=== PATIENT | female | born 1970 | race Caucasian/White ===

== ENCOUNTER 2016-11-21 13:43 | Emergency (ER) | payer OTHER ==
[~2016-11-21] VITALS: Ht 144.8 cm; Wt 40.8 kg
[2016-11-21] MEDS ORDERED: CLINDAMYCIN HC300 MG PO (14:20)
--- NOTE | 2016-11-21 14:23 | Urgent Treatment Center Report ---
History of Present Issue Date/Time Seen by Provider 11/21/16 1413 Visit Reason Pt arrived:Walked Presenting Problem:PT C/O ABSCESS TOOTH Location if Accident: Onset of symptoms date/time:/ or onset unknown for:MEDICAL HX UNKNOWN Have you (or family members/close friends) recently traveled outside the [place]? N If Yes, where/when: Have you had exposure to infectious disease within the past month? TB? Other? Specify: Source patient Exam Limitations no limitations Comment 46-year-old female presents for abscessed tooth on the lower LEFT hand side of jaw. Patient states she's had numerous abscessed teeth over the last couple months and had just finished penicillin orally 3 days ago for an abscess. She does not live around here she is just visiting. Patient refuses any IM injection ALLERGIES Coded Allergies: No Known Drug Allergies (NKDA) (Mild, 11/21/16) acetaminophen (From PERCOCET) (Mild, 11/21/16) cefaclor (From CECLOR) (Mild, 11/21/16) oxycodone (From PERCOCET) (Mild, 11/21/16) History Medical History General CAD? No Angina: No GA: No Hypertension? No Hyperlipidemia? No CHF? No DVT? No PE? No COPD? No Asthma? No Anemia? No GERD? No Gastric ulcers? No GI Bleed? No Hernia? No Thyroid Problems? No Hypothyroidism? No CVA? No Seizures? No Diabetes? No Renal Insuffiency? No UTI? No Stones? No BPH? No GB Disease: No Nephritic Syndrome? No Asplenia? No Hepatitis? No Sickle Cell Disease? No Arthritis? No Migraines? No Cataracts? No Glaucoma? No MRSA? No HIV? No TB? No Anxiety? No Depression? No Cancer? No More? No Immunization HX DT/Tetanus 1-4 Years Ago Surgical Hx Previous Surgery?N Social History Smoking Hx Smoker: Current Every Day Smoker Tobacco: Yes Type Cigarettes Review of Systems All Other Systems Reviewed and Negative ENT see HPI, dental caries. Physical Exam Vital Signs Vital Signs Date Time Temp Pulse Resp B/P Pulse O2 O2 Flow FiO2 Ox Delivery Rate 11/21 1408 98.2 99 20 130/90 98 - WBC >12,000 or <4,000 or 10% bands? 2 or more SIRS Criteria Met? B/P:130/90 MAP:103 Creatinine >2.0? UA output<0.5ml/kg/hr for 2 hrs? Platelet count >100,000? Lactate >2.0mmol/1? INR >1.2 or PTT > than 60 sec? Evidence of Organ Dysfunction? Provider documented clinical suspician of infection? Sepsis Criteria Count: 2 Sepsis Risk: General Appearance normal appearance, no apparent distress Eye Exam - bilateral eye normal exam, bilateral eye PERRL, bilateral eye EOMI Ear, Nose, Throat hearing grossly normal, dental caries, multiple dental caries, numerous teeth decayed to the gumline, Neck normal inspection, full range of motion, lymphadenopathy (L) Respiratory Status Yes: trachea midline, chest symmetrical, non tender chest. No: respiratory distress. Lung Sounds bilateral: normal breath sounds, lungs clear. Cardiovascular normal exam, regular rate/rhythm Neurologic alert, normal exam, oriented x 3 Medical Decision Making LABS/Meds/Orders Pt receiving controlled substance in ED? No Departure Departure Time of Disposition 1417 Disposition DC Home or Self Care(routine) Clinical Impression Primary Impression: Abscessed tooth Condition STABLE Patient Instructions Tooth Abscess Additional Instructions Follow up with dentist PEPE Tylenol or ibuprofen as needed for pain Dental balls every 4 as needed for pain Symptoms worsen or do not improve return or be seen in the ER Discharge Counseling Counseled pt/family regarding diagnosis, medications/RX, home care, follow up needs Prescriptions Current Visit Scripts Clindamycin Hcl (Clindamycin 300MG) 300 MG PO QID 10 Days Comments Patient refused IM injection of antibiotics even after encouraging this is the best treatment at 1426
[2016-11-21 14:34] VITALS: BP 130/90
--- OUTSIDE RECORDS SUMMARY | 2016-11-22 04:21 | External Medical Summary Rpt | CCD ---
Demographics Preferred Language Lao Marital Status Unknown Yazidism Affiliation Unknown Race Unknown Ethnic Group Unknown Author Author , VIELKA VORA Address Unknown Phone Immunization No patient found.
--- OUTSIDE RECORDS SUMMARY | 2016-11-22 04:21 | External Medical Summary Rpt | CCD ---
Author Author VIELKA Address Unknown Phone [email or web address] Purpose Continuity of Care Document - through 2016
--- OUTSIDE RECORDS SUMMARY | 2016-11-22 04:21 | External Medical Summary Rpt | CCD ---
Author Author VIELKA Address Unknown Phone [email or web address] Purpose Continuity of Care Document - through 2016
--- OUTSIDE RECORDS SUMMARY | 2016-11-22 04:21 | External Medical Summary Rpt | CCD ---
Author Author VIELKA Address Unknown Phone Purpose Continuity of Care Document - through 2016
--- OUTSIDE RECORDS SUMMARY | 2016-11-22 04:21 | External Medical Summary Rpt | CCD ---
Demographics Preferred Language Setswana Marital Status Unknown Pentecostalism Affiliation Unknown Race Unknown Ethnic Group Unknown Author Author , VIELKA VORA Address Unknown Phone Immunization No patient found.
== END 2016-11-21 14:34 | disposition home or self-care (01) ==
LOC: UTC 13:43
DX: K04.7 Periapical abscess without sinus (principal); F17.210 Nicotine dependence, cigarettes, uncomplicated; Z88.1 Allergy status to other antibiotic agents; Z88.6 Allergy status to analgesic agent

== ENCOUNTER 2016-12-17 08:41 | Emergency (ER) | payer SELFPAY ==
[~2016-12-17] VITALS: Ht 144.8 cm; Wt 40.8 kg
[~2016-12-17 08:41] MED LIST: CLINDAMYCIN HC300 MG PO
[2016-12-17 09:06] LABS: URINE BILIRUBIN - DIPSTICK NEGATIVE (NEG); URINE BLOOD 3+ (NEG)
[2016-12-17 09:12] LABS: URINE SQUAMOUS CELLS 20-50 #/hpf (0-5)
--- OUTSIDE RECORDS SUMMARY | 2016-12-17 09:14 | External Medical Summary Rpt | CCD ---
Author Author VIELKA Address Unknown Phone [email or web address] Purpose Continuity of Care Document - through 2016
--- OUTSIDE RECORDS SUMMARY | 2016-12-17 09:15 | External Medical Summary Rpt | CCD ---
Author Author [employer] Address Unknown Phone Unavailable Purpose Continuity of Care Document - through 2016
--- OUTSIDE RECORDS SUMMARY | 2016-12-17 09:15 | External Medical Summary Rpt | CCD ---
Demographics Preferred Language Belarusian Marital Status Unknown Baptist Affiliation Unknown Race Unknown Ethnic Group Unknown Author Author , VIELKA VORA Address Unknown Phone Immunization No patient found.
--- OUTSIDE RECORDS SUMMARY | 2016-12-17 09:15 | External Medical Summary Rpt ---
Author Author VIELKA Garrido, VIELKA Garrido Organization [employer] Address Unknown Phone Unavailable
--- OUTSIDE RECORDS SUMMARY | 2016-12-17 09:15 | External Medical Summary Rpt | CCD ---
Demographics Preferred Language Tajik Marital Status Unknown Bahai Affiliation Unknown Race Unknown Ethnic Group Unknown Author Author , VIELKA VORA Address Unknown Phone Immunization No patient found.
[2016-12-17] MEDS ORDERED: DIFLUCAN150 MG PO (09:19)
--- NOTE | 2016-12-17 09:21 | Emergency Room Report ---
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 N Clinical Suspician of Infection? N Mental Status: 1 - Regular (Normal Baseline) Sepsis Risk:Low Sepsis Risk Have you (or family members/close friends) recently traveled outside the [place]? N If Yes, where/when: Have you had exposure to infectious disease within the past month? TB? Other? Specify: 46 years old white female A0 lLMP was 2 weeks ago, s/p tubal ligation and she is exually active. She devloped vaginal itching x 3 days duration, has no pcp. denies any systemic symptoms. Source patient, RN notes reviewed Exam Limitations no limitations ALLERGIES Coded Allergies: No Known Drug Allergies (NKDA) (Mild, 12/17/16) acetaminophen (From PERCOCET) (Mild, 12/17/16) cefaclor (From CECLOR) (Mild, 12/17/16) oxycodone (From PERCOCET) (Mild, 12/17/16) Home Medications Active Scripts Clindamycin Hcl (Clindamycin 300MG) 300 MG PO QID 10 Days Prov: 11/21/16 History Medical History General CAD? No Angina: No ND: No Hypertension? No Hyperlipidemia? No CHF? No DVT? No PE? No COPD? No Asthma? No Anemia? No GERD? No Gastric ulcers? No GI Bleed? No Hernia? No Thyroid Problems? No Hypothyroidism? No CVA? No Seizures? No Diabetes? No Renal Insuffiency? No End Stage Renal Disease? No UTI? No Stones? No BPH? No GB Disease: No Nephritic Syndrome? No Asplenia? No Hepatitis? No Sickle Cell Disease? No Arthritis? No Migraines? No Cataracts? No Glaucoma? No MRSA? No HIV? No TB? No Anxiety? No Depression? No Cancer? No More? No Immunization Hx Ped.Immunizations UTD Yes DT/Tetanus 1-4 Years Ago Surgical Hx Previous Surgery?N she did have CS. 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 Respiratory no symptoms reported Cardiovascular no symptoms reported Gastrointestinal no symptoms reported Genitourinary vaginal discharge. Musculoskeletal no symptoms reported Skin no symptoms reported Psychiatric/Neurological no symptoms reported Physical Exam Vital Signs Vital Signs Date Time Temp Pulse Resp B/P Pulse O2 O2 Flow FiO2 Ox Delivery Rate 12/17 0853 98.0 83 16 149/96 100 - WBC >12,000 or <4,000 or 10% bands? 2 or more SIRS Criteria Met? B/P:149/96 MAP:113 Creatinine >2.0? UA output<0.5ml/kg/hr for 2 hrs? Platelet count >100,000? Lactate >2.0mmol/1? INR >1.2 or PTT > than 60 sec? Evidence of Organ Dysfunction? Provider documented clinical suspician of infection? N Sepsis Criteria Count: 0 Sepsis Risk: Low Sepsis Risk General Appearance normal appearance, WD/WN Eye Exam - bilateral eye normal exam, bilateral eye PERRL, bilateral eye EOMI Ear, Nose, Throat hearing grossly normal, normal ENT inspection Neck normal inspection, non-tender, supple, full range of motion Respiratory Status Yes: trachea midline, chest symmetrical, non tender chest. No: respiratory distress. Lung Sounds bilateral: normal breath sounds, lungs clear. Cardiovascular normal exam, regular rate/rhythm, no peripheral edema, no gallop, no JVD, no murmur, no rub, normal peripheral pulses Peripheral Pulses Pulses normal Yes Gastrointestinal normal bowel sounds, normal exam, non tender, soft, no organomegaly Back normal inspection, no CVA tenderness, no vertebral tenderness Extremities non-tender, normal range of motion, normal inspection Pelvic normal external exam, normal adnexa, no cerv. motion tender, no masses, Vulva was WNl, Vagina scan chocolate like vaginal discarge. 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 No Results/Orders Laboratory Tests 12/17/16 0900: Urine Color YELLOW, Urine Appearance TURBID, Urine pH 7.0, Ur Specific [place] 1.010, Urine Protein NEGATIVE, Urine Ketones NEGATIVE, Urine Blood 3+ H, Urine Nitrate NEGATIVE, Urine Bilirubin NEGATIVE, Urine Urobilinogen 0.2, Ur Leukocyte Esterase 1+ H, Urine RBC 5-10, Urine WBC 20-50, Ur Squamous Epith Cells 20-50, Urine Bacteria 3+, Urine Glucose NEGATIVE Orders Procedure Date/time Status CULTURE, URINE 12/17 899 Active URINALYSIS/COMPLETE 12/17 857 Complete URINE 12/17 857 Complete Departure Departure Time of Disposition 09 Disposition DC Home or Self Care(routine) Clinical Impression Primary Impression: Vaginitis Condition STABLE Referrals Valentino Castrejon MD Additional Instructions I discussed with Dr Castrejon the presentation and physical findings and lab results, he recommened to start diflucan and repeat in 3 traci and he will see her 12/21/16 at 3 PM for follow up she is to return for any new sx Discharge Counseling Counseled pt/family regarding diagnosis, test results, medications/RX, home care, follow up needs Prescriptions Current Visit Scripts Fluconazole (Diflucan 150MG) 150 MG PO ONCE #2 TAB ED Critical Care Critical Care No If Critical Care minutes are documented, the time involved in the performance of seperately reportable procedures was not counted toward critical care time documented. I directly delivered medical care to this critically ill and/or injured patient. Timely evaluation and treatment was necessary to address the significant organ system(s) dysfunction present in this patient. at 0920
[2016-12-17 09:24] VITALS: BP 149/96
== END 2016-12-17 09:24 | disposition home or self-care (01) ==
LOC: ER 08:41
PROVIDERS: Emergency Medicine
DX: N76.0 Acute vaginitis (principal)